=== PATIENT | female | born 1965 | race African-American/Black ===

== ENCOUNTER 2023-05-06 19:28 | Emergency (ER) | payer OTHER ==
[~2023-05-06] VITALS: Ht 167.6 cm; Wt 75.0 kg
[2023-05-06 19:30] VITALS: BP 110/71; PULSE 79; RESP 16; TEMP 98.4; O2SAT 99
== END 2023-05-06 23:14 | disposition left against medical advice (07) ==
LOC: ER 19:28
DX: R53.1 Weakness (principal); Z53.21 Procedure and treatment not carried out due to patient leaving prior to being seen by health care provider
CPT/HCPCS: 99281